=== PATIENT | male | born 1965 | race Caucasian/White ===

== ENCOUNTER → 2017-06-01 | Outpatient (CLI) | payer BC ==
--- NOTE | 2017-06-01 17:17 | RADRPT ---
PROCEDURE: XR Bilateral Shoulder. CLINICAL INDICATION: Bilateral shoulder pain. TECHNIQUE: Three views of each shoulder for a total of six views. Frontal internal rotation, fron eduard external rotation, and oblique. COMPARISON: No prior study is available for comparison. FINDINGS: There is no fracture or dislocation. The soft tissues are normal. Articular surfaces are intact. There is no lytic or blastic lesion. There is no radiopaque foreign body. IMPRESSION: 1. Normal images of the right shoulder. 2. Normal images of the left shoulder. RPTAT: QQ .Odin Ray MD, MD Date Time Electronically viewed and signed by .Odin Ray MD, MD on 06/01/2017 17:17 .R/
--- NOTE | 2017-06-01 18:34 | HKNOTE ---
DATE OF SERVICE: 06/01/2017 CHIEF COMPLAINT: Bilateral shoulder pain. 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 He has had previous left knee arthroscopic surgery by Dr. Diallo herrmann. He states that the pain is severe in his right shoulder. There are no alleviating factors . It is aggravated by lifting. The pain is constant. He takes ibuprofen. He has had previous phy sical therapy with no pain relief. Otherwise, he has no complaints. PHYSICAL EXAMINATION: Right shoulder exam: Tender over the anterior deltoid AC joint, 180 degrees of forward flexion, 180 degrees of abduction, 90 degrees of external rotation, 90 degrees of internal rotation, 30 degrees of adduction. Positive Neer's, positive Aleman, negative belly press, negative liftoff. Left shoulder exam: Tender over the anterior deltoid AC joint, 180 degrees of forward flexion, 180 degrees of abduction, 90 degrees of external rotation, 90 degrees of internal rotation, 30 degrees o f adduction. Positive Neer's, positive Aleman, negative belly press, negative liftoff. Right shoulder 2 view x-rays: No fractures or dislocations are seen. There are degenerative change s of the AC joint. Left shoulder x-rays: No fractures or dislocations are seen. There are degenerative changes of the AC joint. IMPRESSION: A 52-year-old male with bilateral shoulder pain. PLAN: I discussed treatment options with the patient. After obtaining verbal consent, the right oulder was prepped and draped in the usual sterile fashion. An injection of 1 mL of Depo-Medrol andre ng with 3 mL of 1% lidocaine was injected under sterile technique. There were no complications. He was advised to ice the right shoulder. He can take ibuprofen for pain control. He will follow up in 6 weeks. Dictated By: ALINA CARO/KOKO Conf#: [id number] DID#: [id number]
== END | disposition home or self-care (01) ==
LOC: HKI 15:21
PROVIDERS: ATTEND Orthopaedic Surgery Adult Reconstructive Orthopaedic Surgery
DX: M25.512 Pain in left shoulder (principal); M25.511 Pain in right shoulder
CPT/HCPCS: 20610; 73030; G0463; J1030

== ENCOUNTER → 2017-06-21 | Outpatient (CLI) | payer BC ==
--- NOTE | 2017-06-22 07:13 | HKNOTE ---
DATE OF SERVICE: 06/21/2017 CHIEF COMPLAINT: Right shoulder pain. HISTORY OF PRESENT ILLNESS: This is a 52-year-old male with right shoulder pain. He had an injecti on of steroids in his right shoulder approximately 4 weeks ago. He states that the pain has improve d. He is complaining of pain at night. He has difficulty with overhead activity. He has pain with flexion of his elbow. He denies any neck pain. He denies any numbness or tingling. He takes ibup rofen for pain control. RIGHT SHOULDER EXAMINATION: No deformity noted. Tender over the anterior deltoid, 180 degrees of a bduction, 30 degrees of adduction, 180 degrees of forward flexion, 30 degrees of extension, 90 degre es of external rotation, 90 degrees of internal rotation. Positive Aleman, positive Neer's. IMPRESSION: A 52-year-old male with right shoulder pain. PLAN: He will begin outpatient physical therapy. He can take ibuprofen for pain control. He will obtain an MRI of his right shoulder. He will return following the MRI to go over the results. Dictated By: ALINA CARO/KOKO Conf#: [id number] DID#: [id number]
== END | disposition home or self-care (01) ==
LOC: HKI 10:14
PROVIDERS: ATTEND Orthopaedic Surgery Adult Reconstructive Orthopaedic Surgery
DX: M25.511 Pain in right shoulder (principal)
CPT/HCPCS: G0463

== ENCOUNTER → 2017-07-06 | Outpatient (CLI) | payer BC ==
--- NOTE | 2017-07-06 19:59 | HKNOTE ---
DATE OF SERVICE: 07/06/2017 CHIEF COMPLAINT: Right shoulder pain. HISTORY OF PRESENT ILLNESS: Mr. Martinez is a 52-year-old male with right shoulder pain. He states that a corticosteroid injection, which was performed previously, has helped his pain. He has diffi culty raising his arm above the shoulder level. He has been attending outpatient physical therapy. 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 He takes ibuprofen as needed. He has no other complaint s. Right shoulder exam is tender over the anterior deltoid 180 degrees of forward flexion, 180 degrees of abduction, 90 degrees, external rotation 90 degrees, internal rotation, 40 extension, 30 degrees abduction. Positive Neer's test, positive Aleman. Has negative belly press, negative liftoff. MRI right shoulder: There is a high-grade bursal partial thickness tear of the supraspinatus tendon with low-grade partial thickness tear of the infraspinatus tendon. There is disruption of the christel ps tendon. There is a subacromial bursitis. IMPRESSION: A 52-year-old male with right shoulder rotator cuff tear. PLAN: Mr. Martinez will continue outpatient physical therapy. Continue ibuprofen as needed. I exp lained to him that should he continue to have pain despite conservative treatment, he can follow up for a right shoulder arthroscopic rotator cuff repair in the future. Dictated By: ALINA CARO/KOKO Conf#: [id number] DID#: [id number]
== END | disposition home or self-care (01) ==
LOC: HKI 13:20
PROVIDERS: ATTEND Orthopaedic Surgery Adult Reconstructive Orthopaedic Surgery
DX: M75.101 Unspecified rotator cuff tear or rupture of right shoulder, not specified as traumatic (principal)
CPT/HCPCS: G0463

== ENCOUNTER → 2017-08-03 | Outpatient (CLI) | END | disposition home or self-care (01) ==